=== PATIENT | female | born 1955 ===

== ENCOUNTER → 2022-05-28 | Outpatient (CLI) | payer OTHER ==
[2022-05-28 16:25] LABS: Albumin, Blood 3.9 g/dL (3.4-5.0); Albumin/Globulin Ratio 1.3 (0.8-1.8); Bilirubin, Total 0.7 mg/dL (0.1-1.0); Bun/Creatinine Ratio 27.3 (12.0-20.0); Calcium, Blood 9.1 mg/dL (8.5-10.1); Creatinine, Blood 0.66 mg/dL (0.40-1.00); Potassium, Blood 3.9 mmol/L (3.5-5.5); Total Protein, Blood 6.9 g/dL (6.4-8.2)
== END | disposition home or self-care (01) ==
LOC: LAB SHORT 16:11
PROVIDERS: Physician Assistant
DX: I10 Essential (primary) hypertension (principal)
CPT/HCPCS: 80053